=== PATIENT | female | born 2000 | race Caucasian/White ===

== ENCOUNTER 2021-03-22 18:30 | Emergency (ER) | payer OTHER ==
[~2021-03-22] VITALS: Ht 152.4 cm; Wt 59.0 kg
== END 2021-03-22 22:18 | disposition home or self-care (01) ==
LOC: ER 18:30
DX: O46.8X1 Other antepartum hemorrhage, first trimester (principal); Z3A.01 Less than 8 weeks gestation of pregnancy

== ENCOUNTER 2021-04-10 09:25 | Emergency (ER) | payer OTHER ==
[~2021-04-10] VITALS: Ht 152.4 cm; Wt 56.7 kg
[2021-04-10] MEDS ORDERED: PRENATABS RX T1 EACH (09:39)
[2021-04-11] MEDS ORDERED: MACRODANTIN100 M1 PO (20:07)
== END 2021-04-10 20:08 | disposition home or self-care (01) ==
LOC: ER 09:25
DX: R11.10 Vomiting, unspecified (principal); O30.011 Twin pregnancy, monochorionic/monoamniotic, first trimester; Z3A.01 Less than 8 weeks gestation of pregnancy

== ENCOUNTER 2021-04-11 13:25 | Emergency (ER) | payer OTHER ==
[~2021-04-11] VITALS: Ht 152.4 cm; Wt 51.7 kg
[~2021-04-11 13:25] MED LIST: PRENATABS RX T1 EACH
[2021-04-11] MEDS ORDERED: MACRODANTIN100 M1 PO (20:07)
== END 2021-04-11 20:33 | disposition home or self-care (01) ==
LOC: ER 13:25
DX: O46.8X1 Other antepartum hemorrhage, first trimester (principal); O23.41 Unspecified infection of urinary tract in pregnancy, first trimester; O30.001 Twin pregnancy, unspecified number of placenta and unspecified number of amniotic sacs, first trimester; Z3A.01 Less than 8 weeks gestation of pregnancy; Z20.828 Contact with and (suspected) exposure to other viral communicable diseases